=== PATIENT | male | born 1970 | race Caucasian/White ===

== ENCOUNTER 2017-05-10 08:30 | Emergency (ER) | payer BC ==
[~2017-05-10] VITALS: Ht 185.4 cm; Wt 88.5 kg
[2017-05-10] MEDS ORDERED: TETRACAINE HCL 0.5% OPHT DROP 2 ML BOTTLE ONE (09:26)
[2017-05-10] MEDS: TETRACAINE HCL 2% TOP SOLUTION 30 ML BOTTLE TP ONE (09:30)
--- NOTE | 2017-05-10 09:30 | NUR ---
Pt states his eyes are having pain, may be from swimming or a bad pair of contact lenses. No other complaints, moderate distress noted
[2017-05-10] MEDS ORDERED: CIPROFLOXACIN 0.3% OPHT DROP 2.5 ML BOTTLE ONE (10:07)
[2017-05-10] MEDS: CIPROFLOXACIN 0.3% OPHT OINT 3.5 GM TUBE EACHEYE ONE (10:18)
--- NOTE | 2017-05-10 10:35 | NUR ---
Gave pt RX and d/c instructions, verbalized understanding.
== END 2017-05-10 10:35 | disposition home or self-care (01) ==
LOC: ER 08:30
DX: H10.9 Unspecified conjunctivitis (principal)
CPT/HCPCS: A4663; J3590